=== PATIENT | male | born 1990 | race Caucasian/White ===

== ENCOUNTER 2023-02-05 06:00 | Outpatient (OUT) | payer MEDICAID, SELFPAY ==
[2023-02-05 12:52] LABS: Basophils Percent Auto 0.5 % (0.2-2.0); Eosinophils Absolute Auto 0.2 10^3/uL (0.0-0.7); Eosinophils Percent Auto 2.3 % (0.9-7.0); Hematocrit 42.2 % (42.0-54.0); Hemoglobin 14.5 g/dL (14.0-18.0); Immature Granulocytes Abs Auto 0.03 10^3/uL (0.00-0.03); Immature Granulocytes Pct Auto 0.4 % (0.0-0.5); Lymphocytes Percent Auto 12.8 % (20.5-60.0); Mean Corpuscular HGB Conc 34.4 g/dL (29.9-35.2); Mean Corpuscular Volume 87.4 fL (80.0-94.0); Mean Platelet Volume 10.2 fL (9.5-13.5); Monocytes Absolute Auto 0.6 10^3/uL (0.3-0.8); Monocytes Percent Auto 6.9 % (1.7-12.0); Neutrophils Absolute Auto 6.2 10^3/uL (1.4-6.5); Neutrophils Percent Auto 77.1 % (43.0-75.0); Platelet Count 242 10^3/uL (150-450); Red Blood Count 4.83 10^6/uL (4.70-6.10)
[2023-02-06 08:13] LABS: Ceruloplasmin 16.4 mg/dL (16.0-31.0)
[2023-02-10 06:12] LABS: Copper Level 103 ug/dL (69-132)
== END 2023-02-05 06:01 | disposition home or self-care (01) ==
LOC: LAB 02-14 16:58
PROVIDERS: PCP Nurse Practitioner
DX: E61.0 Copper deficiency (principal)
CPT/HCPCS: 36415; 82390; 82525; 85025